=== PATIENT | female | born 1965 | race Caucasian/White ===

== ENCOUNTER 2018-11-04 11:23 | Emergency (ER) | payer SELFPAY ==
[~2018-11-04] VITALS: Ht 180.3 cm; Wt 120.0 kg
[2018-11-04 11:26] VITALS: BP 145/77; PULSE 78; RESP 21; Ht 180.3 cm; Wt 120.0 kg
[2018-11-04] MEDS ORDERED: KETOROLAC 60 MG INJ IM STA (13:26)
[2018-11-04] MEDS ORDERED: TRAM50TA2 PO (14:45)
--- NOTE | 2018-11-04 15:15 | ERD ---
ER Documentation Chief Complaint Chief Complaint BACK AND ELBOW PAIN AND INJURY DUE TO FALL HPI 53-year-old female patient with no significant past medical history presents to ED complaining of back, elbow pain and accidental slip and fall that started earlier today at work. 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 Patient describes as achy and rates it an 8 out of 10. Denies any head or neck injuries. Denies any fever, chills, nausea, vomiting, diarrhea, neck stiffness. ROS All systems reviewed and are negative except as per history of present illness. Medications Home Meds Active Scripts Tramadol HCl (Tramadol HCl) 50 Mg Tablet, 50 MG PO Q6 PRN for PAIN, #12 TAB Prov:VINNY VASQUEZ PA-C 11/04/18 Allergies Allergies: Coded Allergies: Penicillins (Verified Allergy, Unknown, 11/04/18) PMhx/Soc Medical and Surgical Hx: pt denies Medical Hx, pt denies Surgical Hx Hx Alcohol Use: No Hx Substance Use: No Hx Tobacco Use: No Smoking Status: Never smoker Physical Exam Vitals Vital Signs Date Temp Pulse Resp B/P (MAP) Pulse Ox O2 O2 Flow FiO2 Time Delivery Rate 11/04/18 97.2 78 21 145/77 99 11:26 (99) Physical Exam Const: [id number], well-nourished. In no acute distress. Head: Atraumatic, normocephalic Eyes: Normal Conjunctiva without injection. No purulent discharge. ENT: Normal external ear, nose. Moist oropharynx without tonsillar exudates. Non-erythematous pharynx. Uvula midline. No drooling. No trismus. Neck: No cervical midline tenderness. Full range of motion. No meningismus. No cervical lymphadenopathy. No JVD. Resp: Clear to auscultation bilaterally. No wheezing, rhonchi, rales, or crackles. No accessory muscle use. No retractions. Cardio: Regular rate and rhythm. No murmurs, rubs or gallops. Abd: Soft, nontender, non distended. Normal bowel sounds. No palpable masses. No rebound tenderness. No guarding. Negative McBurney's point. Negative psoas sign. Negative obturator sign. Skin: No petechiae or rashes Back: No midline tenderness. No CVA tenderness. Ext: No cyanosis, or edema. Neur: Awake and alert. Normal gait. Normal coordination. Psych: Normal Mood and Affect Results 24 hrs Current Medications Medications Dose Sig/Merly Start Time Status Last (Trade) Ordered Route PRN Stop Time Admin Dose Reason Admin Ketorolac 60 mg ONCE STAT 11/04/18 DC 11/04/18 Tromethamine IM 13:26 13:33 (Toradol) 11/04/18 13:28 Procedures/MDM 53-year-old female patient with no significant past medical history presents the ED complaining of lower back pain, right elbow pain that started earlier today from a slip and fall. Patient is right-handed. Patient is afebrile and nontoxic-appearing. A lower lumbar x-ray, right elbow x-ray was ordered to further evaluate patient. Patient was given Toradol 60 mg IM here in the ED with slight improvement of her pain. PROCEDURE: XR Right Elbow. CLINICAL INDICATION: right elbow pain/injury TECHNIQUE: AP, lateral and oblique views of the right elbow performed. COMPARISON: None. FINDINGS: No evidence of acute fracture or dislocation. No significant arthropathy or erosions. No joint effusion. Soft tissue swelling with possible laceration at the lateral aspect. IMPRESSION: No evidence of acute fracture or dislocation. PROCEDURE: XR Lumbar Spine. CLINICAL INDICATION: lower back pain TECHNIQUE: AP, lateral and cone-down lateral view of the lumbar spine were obtained. COMPARISON: No prior studies are available for comparison. FINDINGS: Transitional anatomy at the lumbosacral junction. No evidence of acute fracture or vertebral body height loss. Normal lordosis. Mild to moderate facet arthropathy, most pronounced in the lower lumbar spine. Disc heights are relatively well preserved. Cholecystectomy clips over the right upper quadrant para IMPRESSION: No acute abnormality of the lumbar spine. Transitional anatomy at the lumbosacral junction. Mild to moderate facet arthropathy in the lower lumbar spine. Differentials include lumbar sprain, strain and elbow sprain Patient is ambulating here in the ED without difficulty. Denies saddle anesthesia, numbness or tingling, urine or bowel incontinence, weakness. Low suspicion for cauda equina syndrome, cord compression, nephrolithiasis, aortic aneurysm, aortic dissection, epidural abscess, spinal hematoma, malignancy, pyelonephritis, or other emergent conditions. Patient's extremity symptoms have stabilized while they have been evaluated in the department and are appropriate for outpatient follow up. No evidence of fractures, dislocations, compartment syndrome, neurologic injury, vascular injury, open joint, open fracture, tendon laceration, septic arthritis, osteomyelitis, DVT, foreign body, or other emergent conditions. Diagnosis: Fall with no significant injury Discharge medications: Tramadol Follow up with primary care physician in 1-2 days for a referral to see an or thopedic physician as well as his worker's compensation. Instructed patient to return to the ED sooner for any worsening symptoms. Patient's questions were answered. Patient is hemodynamically stable. Patient understood and agreed with discharge plan. Patient discharged stable. Disclaimer: Inadvertent spelling and grammatical errors are likely due to EHR/dictation software use and do not reflect on the overall quality of patient care. Also, please note that the electronic time recorded on this note does not necessarily reflect the actual time of the patient encounter. Departure Diagnosis: Primary Impression: Fall with no significant injury Encounter type: initial encounter Qualified Codes: W19.XXXA - Unspecified fall, initial encounter Condition: Stable Patient Instructions: Back Pain (Acute Or Chronic), Back Sprain/Strain, Sprain Elbow Referrals: [facility] YOU HAVE RECEIVED A MEDICAL SCREENING EXAM AND THE RESULTS INDICATE THAT YOU DO NOT HAVE A CONDITION THAT REQUIRES URGENT TREATMENT IN THE EMERGENCY DEPARTMENT. FURTHER EVALUATION AND TREATMENT OF YOUR CONDITION CAN WAIT UNTIL YOU ARE SEEN IN YOUR DOCTORS OFFICE WITHIN THE NEXT 1-2 DAYS. IT IS YOUR RESPONSIBILITY TO MAKE AN APPOINTMENT FOR FOLOW-UP CARE. IF YOU HAVE A PRIMARY DOCTOR --you should call your primary doctor and schedule an appointment IF YOU DO NOT HAVE A PRIMARY DOCTOR YOU CAN CALL OUR PHYSICIAN REFERRAL HOTLINE AT IF YOU CAN NOT AFFORD TO SEE A PHYSICIAN YOU CAN CHOSE FROM THE FOLLOWING [facility] [address] [facility] [address] [facility] [address] [facility] [address] [facility] [address] [facility] [address] [facility]. [facility] YOU HAVE RECEIVED A MEDICAL SCREENING EXAM AND THE RESULTS INDICATE THAT YOU DO NOT HAVE A CONDITION THAT REQUIRES URGENT TREATMENT IN THE EMERGENCY DEPARTMENT. FURTHER EVALUATION AND TREATMENT OF YOUR CONDITION CAN WAIT UNTIL YOU ARE SEEN IN YOUR DOCTORS OFFICE WITHIN THE NEXT 1-2 DAYS. IT IS YOUR RESPONSIBILITY TO MAKE AN APPOINTMENT FOR FOLOW-UP CARE. IF YOU HAVE A PRIMARY DOCTOR --you should call your primary doctor and schedule and appointment IF YOU DO NOT HAVE A PRIMARY DOCTOR YOU CAN CALL OUR PHYSICIAN REFERRAL HOTLINE AT . IF YOU CAN NOT AFFORD TO SEE A PHYSICIAN YOU CAN CHOSE FROM THE FOLLOWING [facility] INSTITUTIONS: [facility] [address] [place] [address] [facility] [address] [place] [address] [facility] [address] [place] [address] [facility] Additional Instructions: Call your primary care doctor TOMORROW for an appointment during the next 2-3 days.See the doctor sooner or return here if your condition worsens before your appointment time. You have been given a medicine which may cause drowsiness.DO NOT DRIVE OR OPERATE DANGEROUS MACHINERY while taking this medicine! VINNY VASQUEZ PA-C Nov 04, 2018 15:15
== END 2018-11-04 15:00 | disposition home or self-care (01) ==
LOC: FTE 11:23
DX: M25.521 Pain in right elbow (principal); M54.5 Low back pain
CPT/HCPCS: 72100; 73080; 96372; 99284; J1885